=== PATIENT | female | born 1985 | race American Indian/Alaskan Native ===

== ENCOUNTER 2021-04-06 14:55 | Emergency (ER) | payer BC, MEDICAID ==
[2021-04-06 16:04] VITALS: BP 178/95
--- NOTE | 2021-04-06 16:14 | Emergency Department Report ---
ED ENT HPI - General Chief complaint: Dental/Oral Stated complaint: TOOTH/EAR PAIN Time Seen by Provider: 04/06/21 16:05 Source: patient Mode of arrival: Ambulatory Limitations: No Limitations - History of Present Illness Initial comments: Patient is a 36-year-old female presents emergency room with complaints of right lower dental pain that began a few days ago. She states that she previously had fillings in these teeth but reports that they fell out approximately 2 years ago. She states that she has not seen a dentist in 2 years. She denies any fever, vomiting, diarrhea, facial swelling, difficulty swallowing, difficulty breathing. Patient denies any past medical history. She has an allergy to prochlorperazine. - Related Data Previous Rx's Medication Instructions Recorded Last Taken Type Vit-Fe Fumar-FA [ 1 each PO QDAY #30 tablet 07/26/14 01/05/15 12:00 Rx Vitamin] Ibuprofen [Motrin 800 MG tab] 800 mg PO TID PRN #30 tablet 01/07/15 Unknown Rx Lidocain2.5%/Prilocai2.5% [Emla] 5 gm TP ONCE #1 tube 01/07/15 Unknown Rx oxyCODONE /ACETAMINOPHEN [Percocet 1 - 2 tab PO Q4HR PRN #30 tablet 01/07/15 Unknown Rx 5/325 mg] Chlorhexidine Mouthwash [Peridex] 15 ml MM BID #1 bottle 04/06/21 Unknown Rx Naproxen 375 mg PO BID PRN #20 tablet 04/06/21 Unknown Rx Penicillin Vk [Veetids TAB] 500 mg PO QID 7 Days #56 tablet 04/06/21 Unknown Rx Allergies Allergy/AdvReac Type Severity Reaction Status Date / Time prochlorperazine edisylate AdvReac Itching Verified 08/20/14 12:30 [From Compazine] prochlorperazine maleate AdvReac Itching Verified 08/20/14 12:30 [From Compazine] ED Dental HPI - General Chief complaint: Dental/Oral Stated complaint: TOOTH/EAR PAIN Time Seen by Provider: 04/06/21 16:05 Source: patient Mode of arrival: Ambulatory Limitations: No Limitations - Related Data Previous Rx's Medication Instructions Recorded Last Taken Type Vit-Fe Fumar-FA [ 1 each PO QDAY #30 tablet 07/26/14 01/05/15 12:00 Rx Vitamin] Ibuprofen [Motrin 800 MG tab] 800 mg PO TID PRN #30 tablet 01/07/15 Unknown Rx Lidocain2.5%/Prilocai2.5% [Emla] 5 gm TP ONCE #1 tube 01/07/15 Unknown Rx oxyCODONE /ACETAMINOPHEN [Percocet 1 - 2 tab PO Q4HR PRN #30 tablet 01/07/15 Unknown Rx 5/325 mg] Chlorhexidine Mouthwash [Peridex] 15 ml MM BID #1 bottle 04/06/21 Unknown Rx Naproxen 375 mg PO BID PRN #20 tablet 04/06/21 Unknown Rx Penicillin Vk [Veetids TAB] 500 mg PO QID 7 Days #56 tablet 04/06/21 Unknown Rx Allergies Allergy/AdvReac Type Severity Reaction Status Date / Time prochlorperazine edisylate AdvReac Itching Verified 08/20/14 12:30 [From Compazine] prochlorperazine maleate AdvReac Itching Verified 08/20/14 12:30 [From Compazine] ED Review of Systems ROS: Stated complaint: TOOTH/EAR PAIN Other details as noted in HPI Comment: All other systems reviewed and negative ED Past Medical Hx - Past Medical History Previous Medical History?: No Hx Hypertension: No Hx Congestive Heart Failure: No Hx Diabetes: No Hx Deep Vein Thrombosis: No Hx Renal Disease: No Hx Sickle Cell Disease: No Hx Seizures: No Hx Asthma: No Hx COPD: No Hx HIV: No - Surgical History Additional Surgical History: c section x 1 - Social History Smoking Status: Never Smoker - Medications Home Medications: Home Medications Medication Instructions Recorded Confirmed Last Taken Type Vit-Fe Fumar-FA [ 1 each PO QDAY #30 tablet 07/26/14 01/07/15 01/05/15 12:00 Rx Vitamin] Ibuprofen [Motrin 800 MG tab] 800 mg PO TID PRN #30 tablet 01/07/15 Unknown Rx Lidocain2.5%/Prilocai2.5% [Emla] 5 gm TP ONCE #1 tube 01/07/15 Unknown Rx oxyCODONE /ACETAMINOPHEN [Percocet 1 - 2 tab PO Q4HR PRN #30 tablet 01/07/15 Unknown Rx 5/325 mg] Chlorhexidine Mouthwash [Peridex] 15 ml MM BID #1 bottle 04/06/21 Unknown Rx Naproxen 375 mg PO BID PRN #20 tablet 04/06/21 Unknown Rx Penicillin Vk [Veetids TAB] 500 mg PO QID 7 Days #56 tablet 04/06/21 Unknown Rx ED Physical Exam - General Limitations: No Limitations General appearance: alert, in no apparent distress - Head Head exam: Present: atraumatic, normocephalic - Eye Eye exam: Present: normal appearance - ENT ENT exam: Present: mucous membranes moist, other (there are dental caries present to the bilateral lower back molars, there is a missing filling from the right lower back molar with ttp, no edema of the gumline, no facial edema, uvula is midline, no uvular edema or deviation, no trimsus, no tongue elevation, no muffled voice, no submandibular edema) - Respiratory Respiratory exam: Absent: respiratory distress, accessory muscle use - Neurological Exam Neurological exam: Present: alert, oriented X3 - Psychiatric Psychiatric exam: Present: normal affect, normal mood - Skin Skin exam: Present: warm, dry, intact ED Course Vital Signs 04/06/21 16:03 Temperature 99.1 F Pulse Rate 100 H Respiratory 18 Rate Blood Pressure 178/95 [Right] O2 Sat by Pulse 100 Oximetry ED Medical Decision Making - Medical Decision Making Patient is a 36-year-old female presents emergency room with complaints of right lower dental pain that began a few days ago. She states that she previously had fillings in these teeth but reports that they fell out approximately 2 years ago. She states that she has not seen a dentist in 2 years. She denies any fever, vomiting, diarrhea, facial swelling, difficulty swallowing, difficulty breathing. Patient denies any past medical history. She has an allergy to prochlorperazine. VSS. on exam: there are dental caries present to the bilateral lower back molars, there is a missing filling from the right lower back molar with ttp, no edema of the gumline, no facial edema, uvula is midline, no uvular edema or deviation, no trimsus, no tongue elevation, no muffled voice, no sub mandibular edema. No signs of significant dental abscess, facial cellulitis, or facial abscess, or ludwigs at this time. Patient given prescription for medication. Advised patient please use medication as prescribed. please follow up with a dentist. it is important to follow up. return to emergency room for any new or worsening symptoms. Critical care attestation.: If time is entered above; I have spent that time in minutes in the direct care of this critically ill patient, excluding procedure time. ED Disposition Clinical Impression: Dental caries, Cracked tooth, Dentalgia Disposition: 01 HOME / SELF CARE / HOMELESS Is pt being admited?: No Does the pt Need Aspirin: No Condition: Stable Additional Instructions: please use medication as prescribed. please follow up with a dentist. it is im portant to follow up. return to emergency room for any new or worsening symptoms. Prescriptions: Naproxen 375 mg PO BID PRN #20 tablet PRN Reason: pain Chlorhexidine Mouthwash [Peridex] 15 ml MM BID #1 bottle Penicillin Vk [Veetids TAB] 500 mg PO QID 7 Days #56 tablet Referrals: [facility] [Outside] - 2-3 Days [facility] [Outside] - 2-3 Days Forms: Work/School Release Form(ED) Time of Disposition: 16:12 Print Language: YORUBA
== END 2021-04-06 16:43 | disposition home or self-care (01) ==
LOC: ED 14:55
DX: K02.9 Dental caries, unspecified (principal); K03.81 Cracked tooth; Z98.890 Other specified postprocedural states; Z88.6 Allergy status to analgesic agent
CPT/HCPCS: 99282